=== PATIENT | female | born 1990 | race Caucasian/White ===

== ENCOUNTER 2023-11-12 00:17 | Emergency (ER) | payer BC ==
[2023-11-12 00:27] VITALS: BP 105/66; PULSE 68; RESP 20; TEMP 97.6; BMI 20.2
[2023-11-12 01:07] LABS: BASO % 0.4 % (0-2.0); EOS % 0.4 % (0-4.5); HEMATOCRIT 41.4 % (32.4-45.2); HEMOGLOBIN 14.4 GM/dL (10.7-15.3); LYMPH % 18.4 % (8-40); MCH 32.1 pg (25.7-33.7); MCHC 34.8 g/dl (32.0-36.0); MEAN CELL VOLUME 92.3 fl (80-96); MEAN PLT VOLUME 8.5 fl (7.5-11.1); MONO % 5.2 % (3.8-10.2); NEUT % 75.6 % (42.8-82.8); PLATELET COUNT 166 10^3/uL (134-434); RBC 4.48 M/mm3 (3.60-5.2); RDW 13.6 % (11.6-15.6); WHITE BLOOD COUNT 10.1 K/mm3 (4.0-10.0)
[2023-11-12 01:19] LABS: POTASSIUM 3.6 mmol/L (3.5-5.1)
[2023-11-12 01:21] LABS: CALCIUM 8.7 mg/dL (8.5-10.1)
[2023-11-12 01:25] LABS: CREATININE 0.7 mg/dL (0.55-1.3)
[2023-11-12 01:26] LABS: BILIRUBIN,TOTAL 0.4 mg/dL (0.2-1); TOT PROT 7.2 g/dl (6.4-8.2)
[2023-11-12] MEDS: ACETAMINOPHEN 1000 MG/100 ML BAG IVPB ONE (01:50)
[2023-11-12 02:21] LABS: URINE COLOR RED
[2023-11-12 02:22] LABS: URINE APPEARANCE BLOODY; URINE BILIRUBIN NEGATIVE (NEGATIVE); URINE GLUCOSE (UA) NEGATIVE (NEGATIVE)
[2023-11-12 02:24] LABS: EPI CELLS 0 /uL (0-25.1); URINE PROTEIN 4+ (NEGATIVE); URINE RBC 43600 /uL (0-23.9); URINE WBC 8 /uL (0-25.8)
[2023-11-12 02:25] LABS: HYALINE CASTS 23 /uL (0-3.1); URINE BACTERIA 1 /uL (0-1359)
[2023-11-12] MEDS: RHO(D) IMMUNE GLOBULIN 1,500 UNIT DISP.SYRIN IM ONE (04:05)
== END 2023-11-12 04:27 | disposition home or self-care (01) ==
LOC: JER 00:17
DX: O03.9 Complete or unspecified spontaneous abortion without complication (principal)
CPT/HCPCS: 36415; 76817-TC; 80053; 81003; 84702; 85025; 86850; 86900; 86901; 96372; 99284-25; J0131; J2790